=== PATIENT | male | born 1960 | race Caucasian/White ===

== ENCOUNTER → 2020-05-26 10:59 | Outpatient (CLI) | payer OTHER, SELFPAY ==
--- NOTE | 2020-05-26 11:02 | DI.RAD.S_ITS ---
PROCEDURE: XR HAND RT 2V INDICATIONS: Finger joint swelling TECHNIQUE: 2 views of the hand(s) acquired. COMPARISON: None. FINDINGS: Bones: No acute fracture or dislocation. A subtle bony erosion is present at the right 3rd distal aspect of the middle phalanx. No other periarticular osteopenia or bony erosions. Soft tissues: No suspicious soft tissue calcifications. IMPRESSION: Subtle bony erosion at the right 3rd DIP joint suspicious for erosive arthritis. Dictated by: Kathi Uriarte M.D. on 05/26/2020 at 12:53 Approved by: Kathi Uriarte M.D. on 05/26/2020 at 12:54
--- NOTE | 2020-05-26 11:02 | DI.RAD.S_ITS ---
PROCEDURE: XR HAND LT 2V INDICATIONS: Finger joint swelling TECHNIQUE: 2 views of the hand(s) acquired. COMPARISON: None. FINDINGS: Bones: No acute fracture or dislocation. Severe interphalangeal joint space narrowing and osteophytosis is present at the 1st IP joint and the 5th PIP joint. No suspicious bony erosions or periarticular osteopenia. Soft tissues: No suspicious soft tissue calcifications. IMPRESSION: Osteoarthritis of the left hand. Dictated by: Kathi Uriarte M.D. on 05/26/2020 at 12:54 Approved by: Kathi Uriarte M.D. on 05/26/2020 at 12:54
[2020-05-26 11:39] LABS: Add Manual Diff / Slide Review NO; Basophils Absolute Auto 0 /uL (0-100); Basophils Percent Auto 0.6 % (0-2); Eosinophils Absolute Auto 200 /uL (0-450); Eosinophils Percent Auto 4.5 % (2-4); Hematocrit 45.3 % (41-53); Hemoglobin 14.9 g/dL (13.5-17.5); Lymphocytes Absolute Auto 1500 /uL (1100-4500); Lymphocytes Percent Auto 38.3 % (25-40); Mean Corpuscular HGB Conc 32.9 % (30-36); Mean Corpuscular Hemoglobin 29.1 PG (26-34); Mean Corpuscular Volume 88.4 fL (80-100); Monocytes Absolute Auto 400 /uL (0-900); Monocytes Percent Auto 11.4 % (3-14); Neutrophils Absolute Auto 1700 /uL (1500-7000); Neutrophils Percent Auto 45.2 % (50-75); Platelet Count 146 X10^3/uL (150-400); Red Blood Cell Count 5.13 X10^6/uL (4.5-5.9); Red Cell Distribution Width 13.1 % (11.6-14.8); White Blood Cell Count 3.9 X10^3/uL (4.5-11.0)
[2020-05-26 12:04] LABS: Erythrocyte Sedimentation Rate 2 MM/HR (0-15)
[2020-05-26 12:12] LABS: C-Reactive Protein Quant < 0.5 mg/dL (<1.0); Rheumatoid Factor < 8.6 IU/mL (<12.0)
[2020-05-26 12:36] LABS: Prostate Specific Antigen Scrn 3.11 ng/mL (0.1-4.0)
[2020-05-27 16:35] LABS: ANA Screen, IFA Negative (.)
[2020-05-29 17:46] LABS: CCP Antibodies IgG/IgA 6 units (0-19)
== END ==
PROVIDERS: PCP Student in an Organized Health Care Education/Training Program; Referring Provider Student in an Organized Health Care Education/Training Program; Visit Provider Student in an Organized Health Care Education/Training Program
DX: M25.449 Effusion, unspecified hand (principal); Z12.5 Encounter for screening for malignant neoplasm of prostate
CPT/HCPCS: 36415; 73120; 85025; 85651; 86038; 86140; 86200; 86430; G0103

== ENCOUNTER → 2021-01-25 09:17 | Outpatient (CLI) | payer OTHER, SELFPAY ==
[2021-01-25 10:09] LABS: COVID19 -Nasal RAPID Negative (Negative)
== END ==
PROVIDERS: PCP Student in an Organized Health Care Education/Training Program; Visit Provider Surgery
DX: Z20.822 Contact with and (suspected) exposure to COVID-19 (principal)
CPT/HCPCS: 87635; C9803

== ENCOUNTER 2021-01-26 13:30 | Day surgery (SDC) | payer OTHER, SELFPAY ==
[2021-01-26 14:00] VITALS: BP 139/81; PULSE 68; RESP 18; TEMP 36.6; O2SAT 97; BMI 23.0
[2021-01-26] MEDS: LACTATED RINGERS 1,000 ML 200 ML IV (14:00)
--- NOTE | 2021-01-26 14:26 | PM.HP.1 ---
History of Present Illness History of Present Illness Date Patient Seen: 01/26/21 Time Patient Seen: 14:27 Chief complaint: SDC Narrative: The patient presents for colorectal sreening. Last colonoscopy 5 years ago reportedly normal he had a previous history of polyps.. No personal or family history of colon cancer. On further history denies any recent gastrointestinal symptoms. No nausea, vomiting, abdominal pain, loss of appetite, unexplained weight loss, change in bowel habits, diarrhea, constipation, melena, hematochezia, or bright red blood per rectum. Patient History Medical History Glaucoma Sleep apnea (~2004) Surgical History Anesthesia Parotid tumor (~2011) Family & Social History Family History Father Hyperlipidemia Mother Hyperlipidemia COPD (chronic obstructive pulmonary disease) Sister Hyperlipidemia Family/Other ADHD History of bipolar disorder Mental health problem Social History: household members spouse Tobacco & Substance use: Smoking Status Never smoker alcohol intake current alcohol intake frequency a few times a month Substance Use Type does not use Meds Home Medications and Allergies Home Medications Medication Instructions Recorded Confirmed Type latanoprost 125 mcg EYE-BOTH BEDTIME 05/26/20 01/26/21 History levothyroxine 100 mcg tablet 100 mcg PO DAILY 05/26/20 01/26/21 History liothyronine 5 mcg tablet 10 mcg PO DAILY 05/26/20 01/26/21 History Allergies Allergy/AdvReac Type Severity Reaction Status Date / Time No Known Drug Allergies Allergy Verified 01/26/21 13:58 Review of Systems Review of Systems ROS: Yes All systems reviewed with the patient and are negative except as otherwise documented Exam Vital Signs (past 8 hours): - 01/26/21 14:00 Temperature 97.9 F Pulse Rate 68 Respiratory Rate 18 Blood Pressure 139/81 Pulse Oximetry 97 Oxygen Delivery Method Room Air Oxygen Flow Rate 0 Narrative Exam Narrative: GENERAL-well developed adult male, no acute distress HEENT-no scleral icterus, hearing intact NECK-no JVD, trachea midline CVS- regular rate, no peripheral edema RESP-unlabored respiratory effort, no audible wheezing GI-soft, nontender nondistended MSK-no cyanosis or clubbing, extremities without deformity SKIN-warm, dry NEURO-alert and oriented, no focal deficits PYSCH-Appropriate mood and affect Assessment & Plan Assessment & Plan narrative: The patient requires colorectal screening and colonoscopy is recommended. Technical details were discussed. Risks, benefits, alternatives explained. Risks including but not limited to myocardial infarction, aspiration, bleeding, pain, missed lesion, incomplete examination, need for further radiographic studies, colonic perforation, and need for major abdominal surgery were discussed. All questions were answered to their satisfaction, and they are in agreement with this plan.
[2021-01-26] MEDS: MIDAZOLAM 5 MG/5 ML VIAL IV (14:42)
[2021-01-26] MEDS: fentaNYL 250 MCG/5 ML INJ IV (14:42)
[2021-01-26 14:59] VITALS: BP 128/84; PULSE 59; RESP 12; TEMP 36.3; O2SAT 95
--- NOTE | 2021-01-26 14:59 | P.OP.ENDO_ITS ---
Operative Date/Time/Diagnoses Date of procedure: 01/26/21 Time of procedure: 14:59 Pre-op diagnosis: Personal history of colonic polyps Post-op diagnosis: same Procedure & Clinicians Study performed: Colonoscopy Same procedure as scheduled: Yes Indications: Personal history of colonic polyps Procedure Notes Procedure in detail: Medications: Conscious sedation using 6 mg IV midazolam and 200 mcg IV of fentanyl The history and physical was performed/updated and the patient is ASA class is 2 The procedure was discussed in detail with the patient. Potential risks complications including infection, bleeding, missed diagnosis, perforation, need for surgery, and were explained. Their questions were answered and informed consent was obtained. Patient was brought to the procedure room and placed standard monitoring equipment. The patient's vital signs were monitored continuously throughout the entire procedure. Prior to starting time-out was performed. The patient was placed in the left lateral recumbent position. Procedural sedation was adminis tered. Examination began with a thorough inspection of the perianal area there was no evidence of fissures, fistulae, external hemorrhoids or cutaneous malignancy. The colonoscopy scope was then placed into the anal canal and was advanced to the cecum, which was identified by the ileocecal valve, the appendiceal orifice and the confluence of the taenia. The scope was then slowly withdrawn examining colon thoroughly in all directions, irrigating it of any residual stool. 1. No masses polyps 2. Grade 1 internal hemorrhoids The patient tolerated the procedure well. They will be discharged once criteria are met. The prep was of good/excellent quality. The withdrawl time was 7 minutes. The sedation time was 24 minutes. Specimen(s): none sent Complications: none Impression: Normal colonoscopy Post-procedure Recommendations: Colonscopy in 10 years Disposition: same day surgery
[2021-01-26 15:04] VITALS: BP 127/83; PULSE 56; RESP 10; O2SAT 96
[2021-01-26 15:09] VITALS: BP 129/84; PULSE 57; RESP 10; O2SAT 96
[2021-01-26 15:14] VITALS: BP 126/79; PULSE 54; RESP 10; O2SAT 97
[2021-01-26 15:19] VITALS: BP 129/86; PULSE 61; RESP 11; TEMP 36.9; O2SAT 94
== END 2021-01-26 15:30 | disposition home or self-care (01) ==
PROVIDERS: PCP Student in an Organized Health Care Education/Training Program; Referring Provider Surgery; Visit Provider Surgery
PROC: 0DJD8ZZ Inspection of Lower Intestinal Tract, Via Natural or Artificial Opening Endoscopic (ICD-10-PCS; CPT 45378; principal; 2021-01-26 14:30)
DX: Z12.11 Encounter for screening for malignant neoplasm of colon (principal); Z86.010 Personal history of colon polyps; G47.30 Sleep apnea, unspecified; K64.0 First degree hemorrhoids
CPT/HCPCS: 45378; 99152; J2250; J3010

== ENCOUNTER → 2023-05-20 11:14 | Outpatient (CLI) | payer OTHER, SELFPAY ==
[2023-05-20 12:43] LABS: Add Manual Diff / Slide Review NO; Basophils Absolute Auto 0 /uL (0-100); Eosinophils Absolute Auto 100 /uL (0-450); Eosinophils Percent Auto 3.6 % (2-4); Hematocrit 43.3 % (41-53); Hemoglobin 14.7 g/dL (13.5-17.5); Lymphocytes Absolute Auto 1400 /uL (1100-4500); Lymphocytes Percent Auto 44.2 % (25-40); Mean Corpuscular HGB Conc 33.9 % (30-36); Mean Corpuscular Hemoglobin 29.6 PG (26-34); Mean Corpuscular Volume 87.3 fL (80-100); Monocytes Absolute Auto 400 /uL (0-900); Monocytes Percent Auto 11.1 % (3-14); Neutrophils Absolute Auto 1300 /uL (1500-7000); Neutrophils Percent Auto 40.1 % (50-75); Platelet Count 132 X10^3/uL (150-400); Red Blood Cell Count 4.96 X10^6/uL (4.5-5.9); White Blood Cell Count 3.2 X10^3/uL (4.5-11.0)
[2023-05-20 13:16] LABS: Alanine Aminotransferase 23 IU/L (<50); Albumin 4.4 g/dL (3.5-5.0); Albumin Globulin Ratio 1.4 (1.0-2.8); Alkaline Phosphatase 68 U/L (38-126); Aspartate Aminotransferase 28 IU/L (17-59); BUN Creatinine Ratio 18.8 (6-22); Bilirubin Total 0.8 mg/dL (0.2-1.3); Blood Urea Nitrogen 15 mg/dL (9-20); Calcium 9.4 mg/dL (8.4-10.2); Carbon Dioxide 32 mmol/L (22-32); Chloride 102 mmol/L (98-107); Cholesterol 202 mg/dL (140-199); Estimated Glomerular Filt Rate > 60 mL/min (>60); Globulin 3.1 g/dL (1.7-4.1); Glucose 87 mg/dL (80-110); HDL Cholesterol 60 mg/dL (40-60); HEMOLYSIS < 15 (0-50); LDL Cholesterol Calculated 124 mg/dL (<100); Potassium 4.7 mmol/L (3.4-5.1); Sodium 138 mmol/L (137-145); Total Protein 7.5 g/dL (6.3-8.2); Triglycerides 89 mg/dL (35-150)
[2023-05-20 13:36] LABS: Free T3, Triiodothyronine Free 3.35 pg/mL (2.77-5.27); Free T4, Direct Thyroxine 1.08 ng/dL (0.78-2.19)
[2023-05-20 13:45] LABS: Prostate Specific Antigen 5.71 ng/mL (0.10-4.00)
[2023-05-20 13:50] LABS: Thyroid Stimulating Hormone 1.21 uIU/mL (0.47-4.68)
== END ==
PROVIDERS: PCP Family Medicine; Referring Provider Family Medicine; Visit Provider Family Medicine
DX: E03.9 Hypothyroidism, unspecified (principal); Z00.00 Encounter for general adult medical examination without abnormal findings; Z12.5 Encounter for screening for malignant neoplasm of prostate
CPT/HCPCS: 36415; 80053; 80061; 84153; 84439; 84443; 84481; 85025

== ENCOUNTER → 2023-07-23 07:14 | Outpatient (CLI) | payer OTHER, SELFPAY ==
[2023-07-23 08:09] LABS: Add Manual Diff / Slide Review NO; Basophils Absolute Auto 0 /uL (0-100); Basophils Percent Auto 0.7 % (0-2); Eosinophils Absolute Auto 200 /uL (0-450); Eosinophils Percent Auto 4.4 % (2-4); Hematocrit 42.6 % (41-53); Hemoglobin 14.3 g/dL (13.5-17.5); Lymphocytes Absolute Auto 1900 /uL (1100-4500); Lymphocytes Percent Auto 42.4 % (25-40); Mean Corpuscular HGB Conc 33.7 % (30-36); Mean Corpuscular Hemoglobin 29.3 PG (26-34); Mean Corpuscular Volume 87.2 fL (80-100); Monocytes Absolute Auto 500 /uL (0-900); Monocytes Percent Auto 10.7 % (3-14); Neutrophils Absolute Auto 1900 /uL (1500-7000); Neutrophils Percent Auto 41.8 % (50-75); Platelet Count 138 X10^3/uL (150-400); Red Blood Cell Count 4.88 X10^6/uL (4.5-5.9); Red Cell Distribution Width 13.3 % (11.6-14.8); White Blood Cell Count 4.5 X10^3/uL (4.5-11.0)
[2023-07-23 08:52] LABS: Prostate Specific Antigen 3.67 ng/mL (0.10-4.00)
== END ==
PROVIDERS: PCP Family Medicine; Referring Provider Family Medicine; Visit Provider Family Medicine
DX: Z00.00 Encounter for general adult medical examination without abnormal findings (principal); R97.20 Elevated prostate specific antigen [PSA]
CPT/HCPCS: 36415; 84153; 85025

== ENCOUNTER → 2024-04-30 16:45 | Outpatient (CLI) | payer BC, SELFPAY ==
[2024-04-30 17:53] LABS: Alanine Aminotransferase 20 IU/L (<50); Albumin 4.5 g/dL (3.5-5.0); Albumin Globulin Ratio 1.6 (1.0-2.8); Alkaline Phosphatase 69 U/L (38-126); Aspartate Aminotransferase 30 IU/L (17-59); BUN Creatinine Ratio 20.2 (6-22); Bilirubin Total 0.5 mg/dL (0.2-1.3); Blood Urea Nitrogen 17 mg/dL (9-20); Calcium 9.2 mg/dL (8.4-10.2); Carbon Dioxide 32 mmol/L (22-32); Chloride 101 mmol/L (98-107); Estimated Glomerular Filt Rate > 60 mL/min (>60); Globulin 2.9 g/dL (1.7-4.1); Glucose 95 mg/dL (80-110); HEMOLYSIS < 15 (0-50); Potassium 4.3 mmol/L (3.4-5.1); Sodium 139 mmol/L (137-145); Total Protein 7.4 g/dL (6.3-8.2)
[2024-04-30 18:10] LABS: Free T4, Direct Thyroxine 0.96 ng/dL (0.78-2.19)
[2024-04-30 18:23] LABS: Prostate Specific Antigen Scrn 4.46 ng/mL (0.1-4.0)
[2024-04-30 18:24] LABS: Thyroid Stimulating Hormone 2.11 uIU/mL (0.47-4.68)
== END ==
LOC: LAB 16:47
PROVIDERS: PCP Family Medicine; Referring Provider Family Medicine; Visit Provider Family Medicine
DX: E03.9 Hypothyroidism, unspecified (principal); G47.30 Sleep apnea, unspecified; Z12.5 Encounter for screening for malignant neoplasm of prostate
CPT/HCPCS: 36415; 80053; 84439; 84443; G0103

== ENCOUNTER → 2025-03-09 07:21 | Outpatient (CLI) | payer MEDICARE, SELFPAY ==
[2025-03-09 08:58] LABS: Add Manual Diff / Slide Review NO; Hematocrit 41.9 % (41-53); Hemoglobin 14.3 g/dL (13.5-17.5); Lymphocytes Absolute Auto 1600 /uL (1100-4500); Mean Corpuscular HGB Conc 34.1 % (30-36); Mean Corpuscular Hemoglobin 29.9 PG (26-34); Mean Corpuscular Volume 87.8 fL (80-100); Platelet Count 126 X10^3/uL (150-400)
[2025-03-09 09:21] LABS: Alanine Aminotransferase 15 IU/L (<50); Albumin 4.4 g/dL (3.5-5.0); Albumin Globulin Ratio 1.8 (1.0-2.8); Alkaline Phosphatase 77 U/L (38-126); Blood Urea Nitrogen 18 mg/dL (9-20); Calcium 9.1 mg/dL (8.4-10.2); Carbon Dioxide 29 mmol/L (22-32); Chloride 104 mmol/L (98-107); Cholesterol 201 mg/dL (140-199); Estimated Glomerular Filt Rate > 60 mL/min (>60); Globulin 2.5 g/dL (1.7-4.1); Glucose 80 mg/dL (70-99); HDL Cholesterol 63 mg/dL (40-60); HEMOLYSIS < 15 (0-50); Potassium 4.5 mmol/L (3.4-5.1); Sodium 140 mmol/L (137-145); Total Protein 6.9 g/dL (6.3-8.2); Triglycerides 75 mg/dL (35-150)
[2025-03-09 09:41] LABS: Free T3, Triiodothyronine Free 3.20 pg/mL (2.77-5.27); Free T4, Direct Thyroxine 0.96 ng/dL (0.78-2.19)
[2025-03-09 09:55] LABS: Thyroid Stimulating Hormone 1.57 uIU/mL (0.47-4.68)
== END ==
PROVIDERS: PCP Family Medicine; Referring Provider Family Medicine; Visit Provider Family Medicine
DX: Z00.00 Encounter for general adult medical examination without abnormal findings (principal); E03.9 Hypothyroidism, unspecified; Z12.5 Encounter for screening for malignant neoplasm of prostate; G47.33 Obstructive sleep apnea (adult) (pediatric)
CPT/HCPCS: 36415; 80053; 80061; 84439; 84443; 84481; 85025; G0103